=== PATIENT | female | born 1995 | race Caucasian/White ===

== ENCOUNTER → 2019-04-27 11:27 | Outpatient (CLI) | payer OTHER, SELFPAY ==
[2019-04-27 13:51] LABS: HCG Qualitative, Serum Negative (Negative)
[2019-04-27 13:52] LABS: Hemoglobin A1C 6.6 % (0.0-7.0)
[2019-04-27 14:11] LABS: Free Thyroxine Index 2.6 ug/dL (5.93-13.13); T4 (Thyroxine) 7.6 ug/dl (4.7-13.3); Thyroid Stimulating Hormone 3.24 uIU/ml (0.358-3.740); Triiodothryronine (T3) Uptake 34 % (31-39)
[2019-04-28 10:49] LABS: LH 7.3 mIU/mL (.)
== END ==
PROVIDERS: PCP Nurse Practitioner Family; Visit Provider Nurse Practitioner Family
DX: N91.2 Amenorrhea, unspecified (principal)
CPT/HCPCS: 36415; 82670; 83001; 83002; 83036; 84436; 84443; 84479; 84703

== ENCOUNTER 2023-03-07 18:07 | Emergency (ER) | payer MEDICAID, SELFPAY ==
[2023-03-07 18:40] VITALS: BP 140/80; PULSE 86; RESP 18; TEMP 36.8; O2SAT 100; BMI 34.1
--- NOTE | 2023-03-07 18:58 | EXP.UTC ---
Discharge Plan Disposition Patient Disposition: Home, Self-Care Condition: Good Prescriptions Prescriptions: New clindamycin HCl 300 mg capsule 300 mg PO Q8H 10 Days Qty: 30 0RF mupirocin 2 % ointment 1 applic topical TID Qty: 22 0RF Referrals Follow up/Referrals: Contreras Mcnally MD [Staff Physician] - See instructions Provider,Pierce, [Primary Care Provider] - See instructions Activity Restrictions/Add. Instructions Additional Instructions/Restrictions: Call office in the morning to get appointment for evaluation Take medication as prescribed Return if needed Straight to ER if any life threatening symptoms Warm compresses to area Do not mash or press on area Clinical Impressions Clinical Impression: Cellulitis Qualifiers: Site of cellulitis: unspecified site Qualified Code(s): L03.90 - Cellulitis, unspecified Instructions Patient Instructions: DI for Cellulitis -- Adult Discharge ED Provider: Juanita Stone [facility] [place] HPI General Stated complaint: Knot on chest Mode of Arrival: Ambulatory Source of Information: Patient Limitations: No Limitations Time Seen by Provider: 03/07/23 18:58 Description of Symptoms (Recalled from Triage Doc. by RN): PATIENT C/O BUMP (POSSIBLE CYST) ON CHEST X 2 DAYS HEENT Symptoms (Recalled from RN notes): No Resp Symptoms (Recalled from RN notes): No Skin Symptoms (Recalled from RN notes): Yes MS Symptoms (Recalled from RN notes): No Functional Status (Recalled from RN notes): WNL History of Present Illness Provider Complaint: Patient states that she has a cyst on the side of her right breast area that a few years ago got inflamed and she had to have it lanced and drained and they told her that it should go away but now it is sore, getting larger and tender to the touch and today she noticed it was looking a little red so she came in to get something for it Related Data Previous Rx's Medication Instructions Recorded clindamycin HCl 300 mg capsule 300 mg PO Q8H 10 days #30 caps 03/07/23 mupirocin 2 % topical ointment 1 applic topical TID #22 grams 03/07/23 Allergies Allergy/AdvReac Type Severity Reaction Status Date / Time No Known Allergies Allergy Verified 03/07/23 18:53 Worker's Comp Is this a Worker's Comp case?: No [facility] Disclaimer: The information contained in this section may have been updated after the patient was seen, as this information can be updated by other users. Social History Smoking Status: Unknown if ever smoked alcohol intake: never current occupational status: unemployed Travel in the last 8 weeks: None ROS Obtained: Yes All systems reviewed & no additional complaints except as documented and Yes Systems reviewed as appropriate & no additional complaints except as documented Constitutional Constitutional: Reports system reviewed and no additional complaints, except as documented, Reports as per HPI and Denies fever(s) ENT Ears, Nose, Mouth, and Throat: Reports system reviewed and no additional complaints, except as documented and Reports as per HPI Cardiovascular Cardiovascular: Reports system reviewed and no additional complaints, except as documented and Reports as per HPI Respiratory Respiratory: Reports system reviewed and no additional complaints, except as documented and Reports as per HPI Gastrointestinal Gastrointestingal: Reports system reviewed and no additional complaints, except as documented and as per HPI Musculoskeletal Musculoskeletal: Reports system reviewed and no additional complaints, except as documented and Reports as per HPI Integumentary/Breasts Skin/Breast: Reports system reviewed and no additional complaints, except as documented and Reports as per HPI Comments: cyst like area on the side of her right breast that is red and tender Physical Exam General General appearance: alert and in no apparent distress Expanded Chest Exam Female Torso: 1. round tender cyst like area noted patient
[2023-03-07 19:13] LABS: UTC Pregnancy Test, Urine Negative (Negative)
[2023-03-07 19:36] VITALS: BP 140/80; PULSE 86; RESP 18; TEMP 36.8; O2SAT 100
== END 2023-03-07 19:40 | disposition home or self-care (01) ==
PROVIDERS: Emergency Provider Nurse Practitioner
DX: N61.0 Mastitis without abscess (principal)
CPT/HCPCS: 81025; 99212; 99214; G0463

== ENCOUNTER 2024-07-19 12:42 | Emergency (ER) | payer MEDICAID, SELFPAY ==
[2024-07-19 13:13] VITALS: BP 121/76; PULSE 87; RESP 18; TEMP 36.7; O2SAT 98; BMI 44.8
--- NOTE | 2024-07-19 13:31 | EXP.UTC ---
Discharge Plan Disposition Patient Disposition: Home, Self-Care Condition: Good Prescriptions Prescriptions: New cefdinir 300 mg capsule 300 mg PO BID Qty: 20 0RF No Action clindamycin HCl 300 mg capsule 300 mg PO Q8H 10 Days Qty: 30 0RF mupirocin 2 % ointment 1 applic topical TID Qty: 22 0RF Referrals Follow up/Referrals: Marika Medina APRN [Primary Care Provider] - See instructions Activity Restrictions/Add. Instructions Additional Instructions/Restrictions: *Monitor Temp, Over the counter Motrin or Tylenol as directed/as needed Tylenol every 4 hours and Motrin every 6 hours (as long as your family doctor has told you that you can take it) for fever or pain. and straight to ER if unable to lower temp less than 101.0 after medication given *Warm salt water gargles may help to soothe the throat *Throat Lozenges? *Warm fluids like tea with honey may help to soothe the throat? *Sleep elevated *Humidifier/Vaporizer *Flonase 2 sprays in each nostril daily but be aware that it may take 2-3 days before you notice improvement *Bromfed may cause drowsiness. Know how it effects you (your child) before driving, caring for small child, or sending your child to school. Not other antihistamines/allergy medications while taking bromfed Your throat swab was sent for culture. Those results are typically sent to your primary care. Be sure to follow up in 2-3 days with your family doctor/primary care physician if no improvement so they can review those result and treat if necessary. If you don?t have a primary care doctor, I recommend you get one but in the mean time, you will have to return to a walk in clinic Follow up IMMEDIATELY for new or worsening symptoms or no Noticeable improvement over the next 48-72 hours. 911 for difficulty breathing or swallowing Clinical Impressions Clinical Impression: Otitis media Qualifiers: Otitis media type: unspecified Laterality: left Qualified Code(s): H66.92 - Otitis media, unspecified, left ear Instructions Patient Instructions: Middle Ear Infection, Cefdinir Print Language Print Language: Luxem[place]ish Discharge ED Provider: Juanita Stone [facility] [place] HPI General Stated complaint: sore throat, congestion, tight chest Time Seen by Provider: 07/19/24 13:31 History of Present Illness Provider Complaint: Patient states that she has been having sore throat, chest congestion and feeling tight when she coughs, nasal congestion and over all not feeling well States that everyone in the house is sick so she came in to get tested Related Data Previous Rx's ?Medication ?Instructions ?Recorded clindamycin HCl 300 mg capsule 300 mg PO Q8H 10 days #30 caps 03/07/23 mupirocin 2 % topical ointment 1 applic topical TID #22 grams 03/07/23 cefdinir 300 mg capsule 300 mg PO BID #20 caps 07/19/24 Allergies Allergy/AdvReac Type Severity Reaction Status Date / Time No Known Allergies Allergy Verified 03/07/23 18:53 [facility] Disclaimer: The information contained in this section may have been updated after the patient was seen, as this information can be updated by other users. Social History (Updated 03/07/23 @ 19:30 by Juanita Stone APRN) Smoking Status: Unknown if ever smoked alcohol intake: never current occupational status: unemployed Travel in the last 8 weeks: None ROS Obtained: Yes All systems reviewed & no additional complaints except as documented and Yes Systems reviewed as appropriate & no additional complaints except as documented Constitutional Constitutional: Reports system reviewed and no additional complaints, except as documented, Reports as per HPI, Reports body ache and Reports headache(s) ENT Ears, Nose, Mouth, and Throat: Reports system reviewed and no additional complaints, except as documented, Reports as per HPI, Reports headache(s), Reports nasal congestion, Reports nasal discharge and Reports sore throat Cardiovascular Cardiovascular: Reports system reviewed and no additional complaints, except as documented, Reports as per HPI and Denies chest pain Respiratory Respiratory: Reports system reviewed and no additional complaints, except as documented, Reports as per HPI, Reports chest congestion and Reports cough Neurologic Neurologic: Reports headache(s) Physical Exam General General appearance: alert and in no apparent distress ENT ENT exam: Present mucous membranes moist Expanded ENT Exam TM/Canal exam: Left TM: erythema and bulging Throat exam: Present other (PND noted with pharyngeal erythema ) Chest Chest inspection: Present normal inspection and symmetric chest wall rise Respiratory Respiratory exam: Present normal lung sounds bilaterally Cardiovascular Cardiovascular exam: Present regular rate, normal rhythm and normal heart sounds Neurological Exam Neurological exam: Present alert, oriented X3 and normal gait Medical Decision Making David Inquiry Pt receiving controlled substance: No David was queried for this patient: No Lab Data Lab results reviewed: Yes I reviewed the patient's lab results.
[2024-07-19 14:03] VITALS: BP 121/76; PULSE 87; RESP 18; TEMP 36.7; O2SAT 98
[2024-07-19 14:10] LABS: Coronavirus 19, PCR Not Detected (NotDetected); Influenza A, PCR Not Detected (NotDetected); Influenza B, PCR Not Detected (NotDetected)
[2024-07-19 18:39] LABS: UTC Strep Screen (Rapid) Negative (Negative)
== END 2024-07-19 14:07 | disposition home or self-care (01) ==
PROVIDERS: Emergency Provider Nurse Practitioner; PCP Nurse Practitioner Family
DX: H66.92 Otitis media, unspecified, left ear (principal); R07.0 Pain in throat; R05.9 Cough, unspecified; R09.81 Nasal congestion
CPT/HCPCS: 87636; 87880; 99212; 99214; G0463